=== PATIENT | male | born 1955 ===

== ENCOUNTER 2017-05-03 08:54 | Inpatient (IN) | payer OTHER, SELFPAY ==
[2017-04-28 08:17] VITALS: BMI 32.4
[2017-05-03] MEDS ORDERED: Lactated Ringer's 1,000 ML IV ONE ×4 (09:34→13:39)
[2017-05-03] MEDS ORDERED: ceFAZolin IV 2 gm in Dextrose 1 GM/50 ML BAG IVPB ONE (10:50)
[2017-05-03] MEDS ORDERED: Propofol 10 mg/ml Inj (20 ML) ONE ×2 (11:33→14:03)
[2017-05-03] MEDS ORDERED: Midazolam 2 MG/2 ML VIAL ONE (11:33)
[2017-05-03] MEDS ORDERED: Rocuronium 10 mg/ml (5 ml) ONE (11:46)
[2017-05-03] MEDS ORDERED: Succinylcholine Chloride 20 mg/ml Syr (5 ml) IV ONE (11:47)
[2017-05-03] MEDS: Bupivacaine/Epi 0.25%-1:200,000 10 ml PF inj IJ ONE ×2 (12:09→14:23)
[2017-05-03] MEDS: Lidocaine 1% Inj (20ml) ONE ×3 (12:09→14:23)
[2017-05-03] MEDS ORDERED: Iohexol 240 (50 ml) ONE (12:52)
[2017-05-03] MEDS ORDERED: Neostigmine Methylsulfate 3mg/3ml Syringe IV ONE (14:05)
--- NOTE | 2017-05-03 14:39 | PCM.SURG1 ---
Surgeon's Initial Post Op Note - Surgeon's Notes Surgeon: Dr Carver Business Services Assistant: Dr Franks PGY2 Type of Anesthesia: General Endo Pre-Operative Diagnosis: cholelithiasis Operative Findings: see report Post-Operative Diagnosis: as above Operation Performed: laparoscopic cholecystectomy. lysis of adhesions Specimen/Specimens Removed: gallbladder Estimated Blood Loss: EBL {In ML}: 100 Blood Products Given: N/A Drains Used: Charly Post-Op Condition: Good Date of Surgery/Procedure: 05/03/17 Time of Surgery/Procedure: 14:39
[2017-05-03] MEDS ORDERED: Dextrose 5%/0.9% NS 1,000 ML IV SCH (14:45)
[2017-05-03] MEDS: HYDROmorphone 1 mg/ml ISec IVP PRN ×2 (14:54→15:33)
--- NOTE | 2017-05-03 17:33 | OP ---
PROCEDURE DATE: 05/03/2017 PREOPERATIVE DIAGNOSIS: Chronic cholecystitis and cholelithiasis. POSTOPERATIVE DIAGNOSES: 1. Acute on chronic cholecystitis. 2. Extensive postinfectious adhesions. 3. Cholelithiasis. PROCEDURE: 1. Laparoscopic cholecystectomy. 2. Laparoscopic extensiveness lysis of adhesions. SURGEON: Aquilino Carver MD DRY PRESS OPERATOR HELPER: Juan Carlos Franks, PGY-2 resident. ANESTHESIA: General endotracheal tube anesthesia. ESTIMATED BLOOD LOSS: Is around 100 mL. DRAINS: The 19-[place] Charly drain was placed. COMPLICATIONS: None. INTRAOPERATIVE FINDINGS: The patient had extensive postinflammatory and postinfectious adhesions and patient had acute on chronic cholecystitis with cholelithiasis, and due to extensive nature of the d isease it took approximately 60-90 minutes extra for the routine procedure. INTRAOPERATIVE STEPS: This is a 61-year-old male who was diagnosed with cholelithiasis and chronic c holecystitis, and patient was consented for laparoscopic cholecystectomy, possible open. Brought to the OR. Placed supine on the operating table. After induction of the anesthesia, abdomen was preppe d and draped in the usual sterile fashion. The supraumbilical transverse 1.5 incision was made. Aft er incising skin and subcutaneous tissue, the fascia was incised in the line of incision. Otto por t pneumo was created. Another 12 mm port was placed in the midline below costal margin. Another two 5 mm ports were placed in the midclavicular and anterior axillary line. After the grasper and disse ctor were introduced and the gallbladder appeared to have extensive adhesions to the colon, duodenum, and to the omentum, and with sharp and blunt dissection the extensive lysis of adhesions was done. The infundibulum of the gallbladder was identified and Calot triangle dissection was done. The cysti c duct and cystic artery appeared to be very clean and the extensive dissection was done for proper i dentification of the structures, and the cystic artery and cystic duct were clipped at 3 places and c ut in with endoclips in the gallbladder, and patient had extensive adhesions and bleeding from the ga llbladder fossa the gallbladder fossa was controlled, and after proper hemostasis, 19-[place] Charly dr ain was placed and all the instruments were taken out of the patient. Pneumo was deflated and the sp ecimen was taken out through the umbilical port site. The umbilical port fascial incision was made b igger to remove the large specimen and fascia was closed with 0 Vicryl, skin with a 4-[address] perez sterile dressing was applied. The patient tolerated the procedure well. Count of instruments and gauze was correct. There was no apparent complication. The patient was extubated in the OR, sent to the postanesthesia care unit in stable condition. Aquilino Carver MD cc: [id number] TT: 05/03/2017 17:32:04 dn
[2017-05-03] MEDS: (Novolin R) Insulin Human Regular 100 units/ml vial SC SCH (21:49)
[2017-05-03] MEDS: Oxycodone/Acetaminophen 5/325 mg Tab PO PRN (22:00)
[2017-05-04 05:19] VITALS: TEMP 98.4
[2017-05-04] MEDS: Oxycodone/Acetaminophen 5/325 mg Tab PO PRN ×2 (05:50→13:03)
[2017-05-04] MEDS ORDERED: Levothyroxine 75 MCG TAB PO SCH (06:30)
[2017-05-04] MEDS: (Novolin R) Insulin Human Regular 100 units/ml vial SC SCH ×2 (07:08→11:53)
[2017-05-04 07:14] LABS: BASO % 0.5 % (0.0-2.0); EOS # 0.1 K/uL (0.0-0.7); HEMATOCRIT 37.1 % (35.0-51.0); LYMPH # 2.1 K/uL (1.0-4.3); LYMPH % 22.8 % (20.0-40.0); MEAN CELL VOLUME 84.3 fL (80.0-94.0); MEAN CORPUSCULAR HEMOGLOBIN 28.1 pg (27.0-31.0); MEAN CORPUSCULAR HGB CONC 33.4 g/dL (33.0-37.0); MEAN PLATELET VOLUME 8.1 fL (7.2-11.7); MONO # 0.9 K/uL (0.0-0.8); MONO % 9.8 % (0.0-10.0); RED CELL DISTRIBUTION WIDTH 13.8 % (11.5-14.5); WHITE BLOOD COUNT 9.3 K/uL (4.8-10.8)
[2017-05-04 08:38] VITALS: RESP 18; O2SAT 94
[2017-05-04 08:47] LABS: CHLORIDE 105 mmol/L (98-107); POTASSIUM 3.5 mmol/L (3.6-5.2); SODIUM 139 mmol/L (132-148)
[2017-05-04 08:49] LABS: AST/SGOT 94 U/L (17-59); BILIRUBIN,TOTAL 0.7 mg/dL (0.2-1.3); CARBON DIOXIDE 26 mmol/L (22-30); GFR AFRICAN-AMERICAN > 60
[2017-05-04 08:50] LABS: ALB/GLOB RATIO 1.1 (1.0-2.1); ALKALINE PHOSPHATASE 71 U/L (38-126); ALT/SGPT 88 U/L (21-72); BLOOD UREA NITROGEN 12 mg/dL (9-20); GLUCOSE,RANDOM 123 mg/dL (75-110)
--- NOTE | 2017-05-04 08:51 | CP.PCM.DIS ---
Provider - Provider Date of Admission: 05/03/17 14:39 Attending physician: Aquilino Carver MD Time Spent in preparation of Discharge (in minutes): 10 Hospital Course - Lab Results Lab Results: Most Recent Lab Values WBC 9.3 K/uL (4.8-10.8) 05/04/17 07:03 RBC 4.40 Mil/uL (4.40-5.90) 05/04/17 07:03 Hgb 12.4 g/dL (12.0-18.0) 05/04/17 07:03 Hct 37.1 % (35.0-51.0) 05/04/17 07:03 MCV 84.3 fL (80.0-94.0) 05/04/17 07:03 MCH 28.1 pg (27.0-31.0) 05/04/17 07:03 MCHC 33.4 g/dL (33.0-37.0) 05/04/17 07:03 RDW 13.8 % (11.5-14.5) 05/04/17 07:03 Plt Count 183 K/uL (130-400) 05/04/17 07:03 MPV 8.1 fL (7.2-11.7) 05/04/17 07:03 Neut % (Auto) 65.9 % (50.0-75.0) 05/04/17 07:03 Lymph % (Auto) 22.8 % (20.0-40.0) 05/04/17 07:03 Carbon % (Auto) 9.8 % (0.0-10.0) 05/04/17 07:03 Eos % (Auto) 1.0 % (0.0-4.0) 05/04/17 07:03 Baso % (Auto) 0.5 % (0.0-2.0) 05/04/17 07:03 Neut # 6.2 K/uL (1.8-7.0) 05/04/17 07:03 Lymph # 2.1 K/uL (1.0-4.3) 05/04/17 07:03 Carbon # 0.9 K/uL (0.0-0.8) H 05/04/17 07:03 Eos # 0.1 K/uL (0.0-0.7) 05/04/17 07:03 Baso # 0.0 K/uL (0.0-0.2) 05/04/17 07:03 POC Glucose (mg/dL) 121 mg/dL (65-110) H 05/04/17 06:27 - Hospital Course Hospital Course: 61M admitted via SDS for elective cholecystectomy. Kept overnight for observation. Tolerating diet and pain well controlled. D/C with rx for pain, stool softeners and follow up appointment. Discharge Exam - Respiratory Exam Respiratory Exam: NORMAL BREATHING PATTERN. absent: Accessory Muscle Use, Respiratory Distress - Cardiovascular Exam Cardiovascular Exam: REGULAR RHYTHM - GI/Abdominal Exam GI & Abdominal Exam: Soft. absent: Distended, Tenderness - Neurological Exam Neurological exam: Alert, Oriented x3 - Psychiatric Exam Psychiatric exam: Normal Affect, Normal Mood - Skin Skin Exam: Normal Color, Warm Discharge Plan - Discharge Medications Prescriptions: Docusate [Colace] 100 mg PO TID #20 cap oxyCODONE/Acetaminophen [Percocet 5/325 mg Tab] 1 tab PO Q4 #20 tab - Follow Up Plan Condition: GOOD Disposition: HOME/ ROUTINE Additional Instructions: clear to shower empty drain daily or when needed follow up in office in 1 week
[2017-05-04] MEDS ORDERED: Potassium Chloride 20 mEq ER Tab PO SCH (10:45)
[2017-05-04] MEDS ORDERED: Sodium Chloride 0.9% 1,000 ML IV SCH (12:45)
[2017-05-04 14:44] VITALS: BP 132/78; PULSE 90
== END 2017-05-04 15:59 | disposition home or self-care (01) | DRG 494 ==
LOC: C.SDS 08:54 → MERGE 14:00 → C.9S 14:39 → C.6T 15:09 → UNDODISIN 05-04 12:19
PROVIDERS: ADMIT Surgery Surgical Critical Care; ATTEND Surgery Surgical Critical Care
PROC: 0DNW4ZZ Release Peritoneum, Percutaneous Endoscopic Approach (ICD-10-PCS; 2017-05-03)
PROC: 0F9440Z Drainage of Gallbladder with Drainage Device, Percutaneous Endoscopic Approach (ICD-10-PCS; 2017-05-03)
PROC: 0FT44ZZ Resection of Gallbladder, Percutaneous Endoscopic Approach (ICD-10-PCS; principal; 2017-05-03 11:00)
DX: K80.12 Calculus of gallbladder with acute and chronic cholecystitis without obstruction (principal); K66.0 Peritoneal adhesions (postprocedural) (postinfection)